=== PATIENT | male | born 1965 | race Two or more races ===

== ENCOUNTER 2018-12-05 15:17 | Inpatient (IN) | payer MEDICAID ==
[~2018-12-05] VITALS: Ht 175.3 cm; Wt 175.1 kg
[2018-12-05] MEDS ORDERED: NITROGLYCERIN OINT 1GM/INCH UDPKT TD ONE (16:15)
[2018-12-05] MEDS ORDERED: ASPIRIN 81MG TABLET PO ONE (16:15)
[2018-12-05] MEDS ORDERED: FUROSEMIDE 40MG/4ML VIAL IV ONE (16:15)
[2018-12-05 16:51] LABS: HEMATOCRIT. 40.8 % (42.0-52.0); HEMOGLOBIN. 13.1 g/dL (14.0-18.0); MEAN CORPUSCULAR HEMOGLOBIN 29.2 pg (28.0-32.0); MEAN CORPUSCULAR VOLUME 91.3 fL (80.0-94.0); MEAN PLATELET VOLUME 7.8 fl (7.4-10.4); PLATELET 328 x1000/uL (130-400); RED BLOOD CELL COUNT 4.47 mill/uL (4.7-6.1); RED CELL DISTRIBUTION WIDTH 16.8 % (11.6-14.6)
[2018-12-05 16:55] LABS: CHLORIDE 106 mEq/L (98-107)
[2018-12-05 17:10] LABS: PLATELET ESTIMATE NORMAL
[2018-12-05 17:12] LABS: INR 1.2; PARTIAL THROMBOPLASTIN TIME 29.9 sec (23.4-31.0); PROTHROMBIN TIME 11.6 sec (9.1-11.1)
[2018-12-05] MEDS ORDERED: ENOXAPARIN 40MG/0.4ML SYR SUBCUT SCH (20:45)
[2018-12-05] MEDS ORDERED: ACETAMINOPHEN 325MG TABLET PO PRN (20:45)
[2018-12-05] MEDS ORDERED: DOCUSATE SODIUM 100MG CAPSULE PO PRN (20:45)
[2018-12-05] MEDS ORDERED: HYDROCODONE/ACETAMINOPHEN 5/325MG TABLET PO PRN (20:45)
[2018-12-05] MEDS ORDERED: IPRATROPIUM/ALBUTEROL 0.5-3(2.5)MG/3ML NEB INH PRN (20:45)
[2018-12-05] MEDS ORDERED: CLONIDINE 0.1MG TABLET PO PRN (20:45)
[2018-12-05] MEDS ORDERED: ONDANSETRON HCL 4MG/2ML INJ IV PRN (20:45)
[2018-12-05] MEDS: ENOXAPARIN 40MG/0.4ML SYR SUBCUT SCH (22:48)
[2018-12-06] VITALS (7 sets, daily range): BP systolic 114–130; BP diastolic 55–79
[2018-12-06 07:54] LABS: BG CARBOXYHEMOGLOBIN 0.7 % (0.5-1.5); BG DEOXYHEMOGLOBIN 12.7 % (0.0-5.0); BG HCO3 ACT 35.2 mmol/L (22.0-26.0); BG METHEMOGLOBIN 0.1 % (0.0-1.5); BG OXYGEN SATURATION 87.2 % (92.0-98.5); BG OXYHEMOGLOBIN 86.5 % (94.0-97.0); BG PCO2 66.7 mmHg (35.0-45.0); BG PO2 55.4 mmHg (75.0-100.0); BG SAMPLE SITE RIGHT RADIAL; BG TOTAL HEMOGLOBIN 13.9 g/dL (12.0-18.0); BG VENT MODE MASK - TRACH
[2018-12-06] MEDS ORDERED: FUROSEMIDE 40MG/4ML VIAL IV SCH (09:00)
[2018-12-06] MEDS: AMLODIPINE 10MG TABLET PO SCH (10:35)
[2018-12-06] MEDS: FUROSEMIDE 40MG/4ML VIAL IV SCH ×2 (10:36→18:19)
[2018-12-06 10:37] LABS: HEMATOCRIT. 40.8 % (42.0-52.0); MEAN CORPUSCULAR HEMOGLOBIN 29.1 pg (28.0-32.0); MEAN CORPUSCULAR VOLUME 91.6 fL (80.0-94.0); PLATELET 310 x1000/uL (130-400); RED BLOOD CELL COUNT 4.45 mill/uL (4.7-6.1)
[2018-12-06 10:40] LABS: CHLORIDE 103 mEq/L (98-107)
[2018-12-06] MEDS: ENOXAPARIN 40MG/0.4ML SYR SUBCUT SCH ×2 (10:47→20:40)
[2018-12-06 10:50] LABS: LDL CHOLESTEROL 58 mg/dL (5-100)
[2018-12-06 10:51] LABS: HDL CHOLESTEROL 27 mg/dL (40-59)
[2018-12-06 11:24] LABS: NUCLEATED RED BLOOD CELLS 1 /100 WBC
[2018-12-06 11:25] LABS: PLATELET ESTIMATE NORMAL
[2018-12-06] MEDS: NAPHAZOLINE HCL/PHENIR MAL OPHTH SOLN 15ML BOTHEYE PRN ×2 (14:58→22:15)
[2018-12-06 16:00] LABS: T4 FREE 1.17 ng/dL (0.76-1.46)
[2018-12-06 16:02] LABS: CREATINE KINASE 46 IU/L (39-308)
[2018-12-06 16:03] LABS: CREATINE KINASE MB FRACTION < 1.0 ng/mL (0.5-3.6)
[2018-12-06] MEDS: SILVER SULFADIAZINE 1% CREAM 25GM TOP SCH (22:15)
[2018-12-06] MEDS: IPRATROPIUM/ALBUTEROL 0.5-3(2.5)MG/3ML NEB HHN SCH (22:46)
[2018-12-07] VITALS: BP 119/76
[2018-12-07 00:38] LABS: CREATINE KINASE 57 IU/L (39-308)
[2018-12-07 00:39] LABS: CREATINE KINASE MB FRACTION < 1.0 ng/mL (0.5-3.6)
[2018-12-07] MEDS: IPRATROPIUM/ALBUTEROL 0.5-3(2.5)MG/3ML NEB HHN SCH ×4 (02:53→20:45)
[2018-12-07 04:00] VITALS: BP 121/73
[2018-12-07 07:34] LABS: CREATINE KINASE 64 IU/L (39-308)
[2018-12-07 07:35] LABS: CREATINE KINASE MB FRACTION < 1.0 ng/mL (0.5-3.6)
[2018-12-07] MEDS: ENOXAPARIN 40MG/0.4ML SYR SUBCUT SCH ×2 (07:54→21:33)
[2018-12-07] MEDS: AMLODIPINE 10MG TABLET PO SCH (07:54)
[2018-12-07] MEDS: FUROSEMIDE 40MG/4ML VIAL IV SCH ×2 (07:54→17:24)
[2018-12-07 08:00] VITALS: BP 124/71
[2018-12-07] MEDS: SILVER SULFADIAZINE 1% CREAM 25GM TOP SCH (08:01)
[2018-12-07] MEDS: NAPHAZOLINE HCL/PHENIR MAL OPHTH SOLN 15ML BOTHEYE PRN (08:02)
[2018-12-07 12:00] VITALS: BP 104/69
[2018-12-07] MEDS: GENTAMICIN 0.3% OPHTH DROPS 5ML LEFTEYE SCH ×3 (12:00→21:32)
[2018-12-07 16:00] VITALS: BP 123/77
[2018-12-07 20:00] VITALS: BP 102/65
[2018-12-08] VITALS: BP 106/58
[2018-12-08] MEDS: IPRATROPIUM/ALBUTEROL 0.5-3(2.5)MG/3ML NEB HHN SCH ×2 (01:38→08:20)
[2018-12-08 04:00] VITALS: BP 115/71
[2018-12-08] MEDS: GENTAMICIN 0.3% OPHTH DROPS 5ML LEFTEYE SCH ×3 (05:42→08:03)
[2018-12-08 08:00] VITALS: BP 107/65
[2018-12-08] MEDS: FUROSEMIDE 40MG/4ML VIAL IV SCH (08:03)
[2018-12-08] MEDS: AMLODIPINE 10MG TABLET PO SCH (08:03)
[2018-12-08] MEDS: SILVER SULFADIAZINE 1% CREAM 25GM TOP SCH (08:04)
[2018-12-08] MEDS: ENOXAPARIN 40MG/0.4ML SYR SUBCUT SCH (08:04)
[2018-12-08 10:16] VITALS: BP 107/65
[2018-12-08] MEDS ORDERED: POTA20TA82 MT (11:43)
[2018-12-08] MEDS ORDERED: FURO40TA5 MT (11:43)
[2018-12-08 12:00] VITALS: BP 124/61
== END 2018-12-08 13:48 | disposition home or self-care (01) | DRG 194 ==
LOC: ER 15:17 → EDBEDREQ 16:18 → 7WST 17:38 → EDBEDREQ 17:40 → ENRESERV 23:50 → CANRESERV 23:50 → 7WST 12-07 01:48
PROVIDERS: ADMIT Hospitalist; ATTEND Hospitalist
DX: I11.0 Hypertensive heart disease with heart failure (principal); J96.20 Acute and chronic respiratory failure, unspecified whether with hypoxia or hypercapnia; E44.0 Moderate protein-calorie malnutrition; E87.2 Acidosis; Z93.0 Tracheostomy status; Z99.81 Dependence on supplemental oxygen; E66.2 Morbid (severe) obesity with alveolar hypoventilation; I50.33 Acute on chronic diastolic (congestive) heart failure; H10.9 Unspecified conjunctivitis; I83.029 Varicose veins of left lower extremity with ulcer of unspecified site; L85.3 Xerosis cutis; L97.929 Non-pressure chronic ulcer of unspecified part of left lower leg with unspecified severity; D72.829 Elevated white blood cell count, unspecified; T36.95XA Adverse effect of unspecified systemic antibiotic, initial encounter; Y92.89 Other specified places as the place of occurrence of the external cause; Z86.73 Personal history of transient ischemic attack (TIA), and cerebral infarction without residual deficits; Z87.01 Personal history of pneumonia (recurrent); Z68.43 Body mass index [BMI] 50.0-59.9, adult; Z71.3 Dietary counseling and surveillance
CPT/HCPCS: 36415; 36600; 71045; 78580; 80061; 82375; 82550; 82553; 82805; 83036; 83880; 84134; 84439; 84443; 84484; 85379; 87070; 93005; 93308; 93970; 94640; 96372; 96374; 99285; J1650; J1940; J7620

== ENCOUNTER 2021-02-16 00:11 | Inpatient (IN) | payer MEDICAID ==
[~2021-02-16] VITALS: Ht 175.3 cm; Wt 298.1 kg
[2021-02-16] VITALS (38 sets, daily range): BP systolic 66–176; BP diastolic 33–133
[~2021-02-16 00:11] MED LIST: FURO40TA5 MT; POTA20TA82 MT
[2021-02-16] MEDS ORDERED: VANCOMYCIN 1 G PREMIX 200 ML IV ONE ×2 (01:00→06:45)
[2021-02-16] MEDS ORDERED: PIPERACILLIN/TAZ 3.375G PREMIX 50 ML IV ONE ×2 (01:00→06:45)
[2021-02-16] MEDS ORDERED: ACETAMINOPHEN 325MG TABLET PO ONE (01:00)
[2021-02-16 01:20] LABS: BG BASE EXCESS 0.3 mmol/L (-2.0-2.0); BG CARBOXYHEMOGLOBIN 0.9 % (0.5-1.5); BG DEOXYHEMOGLOBIN 5.2 % (0.0-5.0); BG FRACTION INSPIRED OXYGEN 60; BG HCO3 ACT 30.2 mmol/L (22.0-26.0); BG METHEMOGLOBIN 0.1 % (0.0-1.5); BG OXYGEN SATURATION 94.7 % (92.0-98.5); BG OXYHEMOGLOBIN 93.8 % (94.0-97.0); BG PCO2 78.5 mmHg (35.0-45.0); BG PH 7.203 (7.350-7.450); BG PO2 74.7 mmHg (75.0-100.0); BG TOTAL HEMOGLOBIN 12.5 g/dL (12.0-18.0); BG VENT MODE NASAL CANNULA
[2021-02-16 01:31] LABS: CLARITY URINE CLEAR (CLEAR); COLOR URINE YELLOW (YELLOW); KETONES URINE NEGATIVE (NEGATIVE); LEUKOCYTE ESTERASE URINE NEGATIVE (NEGATIVE); NITRITE URINE NEGATIVE (NEGATIVE); OCCULT BLOOD URINE NEGATIVE (NEGATIVE); PH URINE 5.5 (4.5-8.0); PROTEIN URINE 2+ (NEGATIVE); SPECIFIC GRAVITY URINE 1.016 (1.005-1.030)
[2021-02-16 01:33] LABS: HEMATOCRIT. 38.3 % (42.0-52.0); MEAN CORPUSCULAR HEMOGLOBIN 31.1 pg (28.0-32.0); MEAN CORPUSCULAR VOLUME 99.2 fL (80.0-94.0); MEAN PLATELET VOLUME 7.8 fl (7.4-10.4); PLATELET 224 x1000/uL (130-400); RED BLOOD CELL COUNT 3.86 mill/uL (4.7-6.1); RED CELL DISTRIBUTION WIDTH 16.8 % (11.6-14.6)
[2021-02-16 01:53] LABS: CHLORIDE 103 mEq/L (98-107)
[2021-02-16] MEDS ORDERED: DEXTROSE 50% WATER 50ML SYRINGE IV ONE (02:15)
[2021-02-16] MEDS ORDERED: INSULIN REGULAR (HUMULIN R) 300UNITS/3ML VIAL IV ONE (02:15)
[2021-02-16] MEDS ORDERED: SODIUM BICARBONATE 8.4% 1 MEQ/ML 50ML SYR IV ONE (02:15)
[2021-02-16] MEDS ORDERED: ALBUTEROL (0.083%) 2.5MG/3ML NEB HHN ONE (02:15)
[2021-02-16] MEDS ORDERED: SODIUM POLYSTYRENE SULFONATE 15 G/60 ML BOT PO ONE (02:15)
[2021-02-16 02:16] LABS: PARTIAL THROMBOPLASTIN TIME 30.8 sec (23.4-31.0); PROTHROMBIN TIME 10.8 sec (9.6-11.0)
[2021-02-16] MEDS ORDERED: DEXAMETHASONE 10 MG/ML VIAL IV ONE (02:30)
[2021-02-16] MEDS ORDERED: FUROSEMIDE 40MG/4ML VIAL IVP ONE (02:30)
[2021-02-16 05:19] LABS: PLATELET ESTIMATE NORMAL
[2021-02-16] MEDS ORDERED: SODIUM POLYSTYRENE SULFONATE 15 G/60 ML BOT PO SCH (06:45)
[2021-02-16] MEDS ORDERED: ACETAMINOPHEN 325MG TABLET PO SCH (06:45)
[2021-02-16 07:17] LABS: BG SAMPLE SITE LEFT RADIAL; BG VENT MODE VENT - AC
[2021-02-16 07:24] LABS: BG PCO2 52.8 mmHg (35.0-45.0); BG PH 7.358 (7.350-7.450)
[2021-02-16 07:25] LABS: BG BASE EXCESS 2.7 mmol/L (-2.0-2.0); BG PO2 93.5 mmHg (75.0-100.0)
[2021-02-16 07:26] LABS: BG CARBOXYHEMOGLOBIN 0.3 % (0.5-1.5); BG OXYGEN SATURATION 97.6 % (92.0-98.5); BG OXYHEMOGLOBIN 97.2 % (94.0-97.0); BG TOTAL HEMOGLOBIN 11.5 g/dL (12.0-18.0)
[2021-02-16 07:27] LABS: BG DEOXYHEMOGLOBIN 2.4 % (0.0-5.0); BG METHEMOGLOBIN 0.1 % (0.0-1.5)
[2021-02-16] MEDS ORDERED: ONDANSETRON HCL 4MG/2ML INJ IV PRN (10:30)
[2021-02-16] MEDS ORDERED: DEXTROSE 50% WATER 50ML SYRINGE IV PRN (10:30)
[2021-02-16] MEDS ORDERED: LIDOCAINE HCL 1% 20ML VIAL (Pyxis) INJ ONE (11:19)
[2021-02-16] MEDS: SODIUM CHLORIDE 0.9% 1,000 ML IV SCH (11:20)
[2021-02-16] MEDS: BLOOD SUGAR DIAGNOSTIC STRIP TEST SCH ×2 (11:23→16:39)
[2021-02-16] MEDS: INSULIN LISPRO 100 UNITS/ML SUBCUT SCH ×2 (11:25→17:42)
[2021-02-16] MEDS: PIPERACILLIN/TAZOBACTAM 3.375 G in DEXT 5% WATER 100 ML IV SCH ×2 (11:26→17:20)
[2021-02-16] MEDS: ENOXAPARIN 40MG/0.4ML SYR SUBCUT SCH ×2 (11:30→21:00)
[2021-02-16] MEDS: IPRATROPIUM/ALBUTEROL 0.5-3(2.5)MG/3ML NEB HHN SCH ×2 (14:13→20:26)
[2021-02-16 18:03] LABS: BG CARBOXYHEMOGLOBIN 0.3 % (0.5-1.5); BG DEOXYHEMOGLOBIN 5.9 % (0.0-5.0); BG FRACTION INSPIRED OXYGEN 50; BG HCO3 ACT 23.8 mmol/L (22.0-26.0); BG METHEMOGLOBIN 0.9 % (0.0-1.5); BG OXYHEMOGLOBIN 92.9 % (94.0-97.0); BG PCO2 40.1 mmHg (35.0-45.0); BG PH 7.391 (7.350-7.450); BG PO2 67.5 mmHg (75.0-100.0); BG SAMPLE SITE RIGHT RADIAL; BG TOTAL HEMOGLOBIN 6.5 g/dL (12.0-18.0); BG VENT MODE VENT - CPAP
[2021-02-16 20:44] LABS: HEMATOCRIT. 37.8 % (42.0-52.0); HEMOGLOBIN. 12.2 g/dL (14.0-18.0); MEAN CORPUSCULAR VOLUME 95.7 fL (80.0-94.0); MEAN PLATELET VOLUME 8.2 fl (7.4-10.4); PLATELET 234 x1000/uL (130-400); RED BLOOD CELL COUNT 3.95 mill/uL (4.7-6.1); RED CELL DISTRIBUTION WIDTH 15.9 % (11.6-14.6)
[2021-02-16 21:26] LABS: PLATELET ESTIMATE NORMAL
[2021-02-16] MEDS: NOREPINEPHRINE 32 MG in DEXT 5% WATER 218 ML IV PRN (21:30)
[2021-02-17] VITALS (97 sets, daily range): BP systolic 49–205; BP diastolic 24–167
[2021-02-17] MEDS: PIPERACILLIN/TAZOBACTAM 3.375 G in DEXT 5% WATER 100 ML IV SCH ×2 (00:17→05:22)
[2021-02-17] MEDS: INSULIN LISPRO 100 UNITS/ML SUBCUT SCH ×5 (00:18→23:44)
[2021-02-17] MEDS: BLOOD SUGAR DIAGNOSTIC STRIP TEST SCH ×5 (00:20→23:43)
[2021-02-17] MEDS: PHENYLEPHRINE 100 MG in DEXT 5% WATER 240 ML IV PRN ×5 (01:12→22:05)
[2021-02-17] MEDS ORDERED: LORAZEPAM 2MG/ML CPJ IV NR (01:30)
[2021-02-17] MEDS ORDERED: DIPHENHYDRAMINE 50MG CAPSULE PO SCH (02:30)
[2021-02-17] MEDS ORDERED: DIPHENHYDRAMINE 50MG/ML VIAL IV PRN (02:30)
[2021-02-17] MEDS: ACETAMINOPHEN 325MG TABLET PO PRN (02:51)
[2021-02-17] MEDS ORDERED: DIPHENHYDRAMINE 50MG/ML VIAL IV SCH (03:00)
[2021-02-17] MEDS: PROPOFOL 10MG/ML 100ML 100 ML IV PRN ×3 (03:11→20:05)
[2021-02-17 03:36] LABS: CLARITY URINE TURBID (CLEAR); COLOR URINE DARK YELLOW (YELLOW); KETONES URINE TRACE (NEGATIVE); LEUKOCYTE ESTERASE URINE TRACE (NEGATIVE); NITRITE URINE NEGATIVE (NEGATIVE); OCCULT BLOOD URINE NEGATIVE (NEGATIVE); PROTEIN URINE 2+ (NEGATIVE); SPECIFIC GRAVITY URINE 1.026 (1.005-1.030)
[2021-02-17 04:37] LABS: BG BASE EXCESS 2.7 mmol/L (-2.0-2.0); BG CARBOXYHEMOGLOBIN 0.7 % (0.5-1.5); BG DEOXYHEMOGLOBIN 5.4 % (0.0-5.0); BG FRACTION INSPIRED OXYGEN 60; BG HCO3 ACT 26.8 mmol/L (22.0-26.0); BG METHEMOGLOBIN 0.2 % (0.0-1.5); BG OXYGEN SATURATION 94.6 % (92.0-98.5); BG OXYHEMOGLOBIN 93.7 % (94.0-97.0); BG PCO2 39.5 mmHg (35.0-45.0); BG PO2 65.6 mmHg (75.0-100.0); BG SAMPLE SITE RIGHT RADIAL; BG TOTAL HEMOGLOBIN 12.4 g/dL (12.0-18.0); BG VENT MODE VENT - AC
[2021-02-17 04:58] LABS: BASOPHILS % 0.1 % (0.0-2.0); EOSINOPHILS % 0.3 % (0.0-5.0); HEMATOCRIT. 38.4 % (42.0-52.0); LYMPHOCYTES % 1.6 % (20.0-50.0); MEAN CORPUSCULAR VOLUME 95.7 fL (80.0-94.0); MEAN PLATELET VOLUME 8.5 fl (7.4-10.4); MONOCYTES % 2.3 % (2.0-8.0); NEUTROPHILS % 95.7 % (40.0-76.0); PLATELET 245 x1000/uL (130-400); RED BLOOD CELL COUNT 4.01 mill/uL (4.7-6.1); RED CELL DISTRIBUTION WIDTH 15.9 % (11.6-14.6)
[2021-02-17] MEDS: IPRATROPIUM/ALBUTEROL 0.5-3(2.5)MG/3ML NEB HHN SCH ×4 (08:07→20:39)
[2021-02-17] MEDS ORDERED: INFLUENZA VACCINE 05/PF 0.5 ML VIAL IM ONE (09:00)
[2021-02-17] MEDS: SODIUM CHLORIDE 0.9% 1,000 ML IV SCH (09:17)
[2021-02-17] MEDS: ENOXAPARIN 40MG/0.4ML SYR SUBCUT SCH ×2 (09:18→20:56)
[2021-02-17] MEDS: LEVOFLOXACIN 500MG PREMIX 100 ML IV SCH (11:33)
[2021-02-17] MEDS: MIDODRINE HCL 5MG TABLET PO SCH ×2 (11:34→17:32)
[2021-02-17] MEDS: SODIUM CHLORIDE 0.45% 1,000 ML IV SCH ×2 (11:35→22:08)
[2021-02-17] MEDS ORDERED: SODIUM CHLORIDE 10% FOR INH 15ML VIAL NEB INH NR (12:00)
[2021-02-17 12:39] LABS: BG BASE EXCESS 2.2 mmol/L (-2.0-2.0); BG DEOXYHEMOGLOBIN 5.6 % (0.0-5.0); BG FRACTION INSPIRED OXYGEN 50; BG HCO3 ACT 27.4 mmol/L (22.0-26.0); BG METHEMOGLOBIN 0.1 % (0.0-1.5); BG OXYGEN SATURATION 94.3 % (92.0-98.5); BG OXYHEMOGLOBIN 93.3 % (94.0-97.0); BG PCO2 44.5 mmHg (35.0-45.0); BG PH 7.407 (7.350-7.450); BG PO2 65.7 mmHg (75.0-100.0); BG SAMPLE SITE RIGHT RADIAL; BG TOTAL HEMOGLOBIN 14.1 g/dL (12.0-18.0); BG VENT MODE VENT - AC
[2021-02-17] MEDS ORDERED: VANCOMYCIN 1 G PREMIX 200 ML IV SCH (13:00)
[2021-02-17] MEDS: NOREPINEPHRINE 32 MG in DEXT 5% WATER 218 ML IV PRN (22:07)
[2021-02-18] VITALS (94 sets, daily range): BP systolic 64–165; BP diastolic 39–100
[2021-02-18] MEDS: PHENYLEPHRINE 100 MG in DEXT 5% WATER 240 ML IV PRN ×7 (00:42→23:09)
[2021-02-18] MEDS: IPRATROPIUM/ALBUTEROL 0.5-3(2.5)MG/3ML NEB HHN SCH ×4 (02:26→19:55)
[2021-02-18] MEDS: ACETAMINOPHEN 325MG TABLET PO PRN (02:31)
[2021-02-18] MEDS: PROPOFOL 10MG/ML 100ML 100 ML IV PRN (03:49)
[2021-02-18] MEDS ORDERED: PROPOFOL 10MG/ML 100ML 100 ML IV PRN (04:45)
[2021-02-18] MEDS: NOREPINEPHRINE 32 MG in DEXT 5% WATER 218 ML IV PRN ×2 (05:41→19:44)
[2021-02-18 05:52] LABS: HEMATOCRIT. 38.4 % (42.0-52.0); HEMOGLOBIN. 11.5 g/dL (14.0-18.0); MEAN CORPUSCULAR VOLUME 100.7 fL (80.0-94.0); MEAN PLATELET VOLUME 9.1 fl (7.4-10.4); PLATELET 189 x1000/uL (130-400); RED BLOOD CELL COUNT 3.81 mill/uL (4.7-6.1)
[2021-02-18] MEDS: BLOOD SUGAR DIAGNOSTIC STRIP TEST SCH ×3 (06:42→17:13)
[2021-02-18] MEDS: INSULIN LISPRO 100 UNITS/ML SUBCUT SCH ×3 (06:45→17:17)
[2021-02-18] MEDS: MIDODRINE HCL 5MG TABLET PO SCH ×3 (08:07→17:15)
[2021-02-18 08:08] LABS: BG BASE EXCESS 0.2 mmol/L (-2.0-2.0); BG FRACTION INSPIRED OXYGEN 50; BG HCO3 ACT 25.7 mmol/L (22.0-26.0); BG METHEMOGLOBIN 0.3 % (0.0-1.5); BG OXYHEMOGLOBIN 95.7 % (94.0-97.0); BG PCO2 44.9 mmHg (35.0-45.0); BG PH 7.376 (7.350-7.450); BG SAMPLE SITE RIGHT RADIAL; BG VENT MODE VENT - AC
[2021-02-18] MEDS: SODIUM CHLORIDE 0.45% 1,000 ML IV SCH ×2 (08:08→17:15)
[2021-02-18] MEDS: ENOXAPARIN 40MG/0.4ML SYR SUBCUT SCH ×2 (08:08→20:55)
[2021-02-18 10:37] LABS: PLATELET ESTIMATE NORMAL
[2021-02-18] MEDS: LEVOFLOXACIN 500MG PREMIX 100 ML IV SCH (10:45)
[2021-02-18] MEDS ORDERED: SODIUM CHLORIDE 10% FOR INH 15ML VIAL NEB INH NR (12:00)
[2021-02-18] MEDS: MEROPENEM 1,000 MG in SODIUM CHLORIDE 0.9% 100 ML IV SCH ×2 (13:25→19:51)
[2021-02-18] MEDS: DIPHENHYDRAMINE 50MG/ML VIAL IV PRN ×2 (15:00→20:55)
[2021-02-18] MEDS: MORPHINE SULFATE 2 MG/ML CPJ (NOT FOR IM USE) IV PRN (20:56)
[2021-02-19] VITALS (98 sets, daily range): BP systolic 65–172; BP diastolic 34–101
[2021-02-19] MEDS: ACETAMINOPHEN 325MG TABLET PO PRN ×4 (00:07→23:11)
[2021-02-19] MEDS: BLOOD SUGAR DIAGNOSTIC STRIP TEST SCH ×4 (00:41→17:10)
[2021-02-19] MEDS: INSULIN LISPRO 100 UNITS/ML SUBCUT SCH ×4 (01:03→17:24)
[2021-02-19] MEDS: PHENYLEPHRINE 100 MG in DEXT 5% WATER 240 ML IV PRN ×8 (01:42→23:09)
[2021-02-19] MEDS: IPRATROPIUM/ALBUTEROL 0.5-3(2.5)MG/3ML NEB HHN SCH ×4 (01:48→20:34)
[2021-02-19] MEDS: SODIUM CHLORIDE 0.45% 1,000 ML IV SCH ×3 (02:55→23:11)
[2021-02-19] MEDS: NOREPINEPHRINE 32 MG in DEXT 5% WATER 218 ML IV PRN ×3 (03:28→22:17)
[2021-02-19] MEDS: MEROPENEM 1,000 MG in SODIUM CHLORIDE 0.9% 100 ML IV SCH ×3 (04:09→22:35)
[2021-02-19] MEDS: MORPHINE SULFATE 2 MG/ML CPJ (NOT FOR IM USE) IV PRN ×2 (04:09→11:02)
[2021-02-19 05:47] LABS: HEMATOCRIT. 38.4 % (42.0-52.0); HEMOGLOBIN. 11.8 g/dL (14.0-18.0); MEAN CORPUSCULAR HEMOGLOBIN 29.7 pg (28.0-32.0); MEAN CORPUSCULAR VOLUME 96.8 fL (80.0-94.0); MEAN PLATELET VOLUME 8.9 fl (7.4-10.4); PLATELET 188 x1000/uL (130-400); RED BLOOD CELL COUNT 3.96 mill/uL (4.7-6.1); RED CELL DISTRIBUTION WIDTH 16.6 % (11.6-14.6)
[2021-02-19] MEDS ORDERED: SODIUM BICARBONATE 8.4% 1 MEQ/ML 50ML SYR IV ONE (08:21)
[2021-02-19] MEDS ORDERED: CALCIUM CHLORIDE 1GM/10ML SYR IV ONE (08:21)
[2021-02-19] MEDS ORDERED: EPINEPHRINE 0.1MG/ML (1:10,000) 10ML SYR ONE (08:21)
[2021-02-19] MEDS: ACETYLCYSTEINE 100MG/ML 10% VIAL 4ML INH SCH ×2 (08:43→13:06)
[2021-02-19] MEDS: MIDODRINE HCL 5MG TABLET PO SCH ×3 (08:53→17:23)
[2021-02-19] MEDS: ENOXAPARIN 40MG/0.4ML SYR SUBCUT SCH ×2 (08:53→22:35)
[2021-02-19 09:07] LABS: BG BASE EXCESS 1.3 mmol/L (-2.0-2.0); BG CARBOXYHEMOGLOBIN 0.2 % (0.5-1.5); BG DEOXYHEMOGLOBIN 2.2 % (0.0-5.0); BG FRACTION INSPIRED OXYGEN 50; BG HCO3 ACT 28.9 mmol/L (22.0-26.0); BG METHEMOGLOBIN 0.3 % (0.0-1.5); BG OXYGEN SATURATION 97.8 % (92.0-98.5); BG OXYHEMOGLOBIN 97.3 % (94.0-97.0); BG PCO2 60.6 mmHg (35.0-45.0); BG PH 7.297 (7.350-7.450); BG PO2 99.6 mmHg (75.0-100.0); BG SAMPLE SITE RIGHT RADIAL; BG VENT MODE VENT - AC
[2021-02-19] MEDS ORDERED: INSULIN GLARGINE UD 100 UNITS/ML SYR SUBCUT NR (12:00)
[2021-02-19 12:04] LABS: PLATELET ESTIMATE NORMAL
[2021-02-19] MEDS: LINEZOLID 600 MG PREMIX 300 ML IV SCH (14:06)
[2021-02-19] MEDS ORDERED: NOREPINEPHRINE 32 MG in DEXT 5% WATER 218 ML IV PRN (21:15)
[2021-02-19] MEDS ORDERED: INSULIN GLARGINE UD 100 UNITS/ML SYR SUBCUT SCH (22:00)
[2021-02-20] VITALS (105 sets, daily range): BP systolic 40–195; BP diastolic 25–119
[2021-02-20] MEDS: LINEZOLID 600 MG PREMIX 300 ML IV SCH ×2 (01:14→13:51)
[2021-02-20] MEDS: INSULIN LISPRO 100 UNITS/ML SUBCUT SCH ×4 (01:18→17:59)
[2021-02-20] MEDS: PHENYLEPHRINE 100 MG in DEXT 5% WATER 240 ML IV PRN ×7 (02:20→23:12)
[2021-02-20] MEDS: NOREPINEPHRINE 32 MG in DEXT 5% WATER 218 ML IV PRN (03:23)
[2021-02-20] MEDS: MEROPENEM 1,000 MG in SODIUM CHLORIDE 0.9% 100 ML IV SCH ×3 (03:59→20:52)
[2021-02-20 05:43] LABS: HEMATOCRIT. 40.4 % (42.0-52.0); HEMOGLOBIN. 12.7 g/dL (14.0-18.0); MEAN CORPUSCULAR HEMOGLOBIN 30.5 pg (28.0-32.0); MEAN CORPUSCULAR VOLUME 97.2 fL (80.0-94.0); MEAN PLATELET VOLUME 9.5 fl (7.4-10.4); PLATELET 219 x1000/uL (130-400); RED BLOOD CELL COUNT 4.15 mill/uL (4.7-6.1); RED CELL DISTRIBUTION WIDTH 16.7 % (11.6-14.6)
[2021-02-20] MEDS: IPRATROPIUM/ALBUTEROL 0.5-3(2.5)MG/3ML NEB HHN SCH ×5 (06:00→20:33)
[2021-02-20] MEDS: BLOOD SUGAR DIAGNOSTIC STRIP TEST SCH ×4 (06:04→18:00)
[2021-02-20 08:51] LABS: BG BASE EXCESS 1.2 mmol/L (-2.0-2.0); BG CARBOXYHEMOGLOBIN 0.6 % (0.5-1.5); BG DEOXYHEMOGLOBIN 0.4 % (0.0-5.0); BG FRACTION INSPIRED OXYGEN 100; BG HCO3 ACT 26.2 mmol/L (22.0-26.0); BG METHEMOGLOBIN 0.3 % (0.0-1.5); BG OXYGEN SATURATION 99.6 % (92.0-98.5); BG OXYHEMOGLOBIN 98.7 % (94.0-97.0); BG PH 7.403 (7.350-7.450); BG PO2 228.1 mmHg (75.0-100.0); BG SAMPLE SITE RIGHT RADIAL; BG TOTAL HEMOGLOBIN 13.2 g/dL (12.0-18.0); BG VENT MODE VENT - AC
[2021-02-20] MEDS: ACETYLCYSTEINE 100MG/ML 10% VIAL 4ML INH SCH ×2 (08:58→14:05)
[2021-02-20] MEDS ORDERED: VASOPRESSIN 20 UNIT in SODIUM CHLORIDE 0.9% 99 ML IV PRN (09:00)
[2021-02-20] MEDS: SODIUM CHLORIDE 0.9% 1,000 ML IV SCH ×2 (09:11→20:57)
[2021-02-20] MEDS: MIDODRINE HCL 5MG TABLET PO SCH ×3 (09:11→17:32)
[2021-02-20] MEDS: ENOXAPARIN 40MG/0.4ML SYR SUBCUT SCH ×2 (09:12→20:52)
[2021-02-20] MEDS: ACETAMINOPHEN 325MG TABLET PO PRN ×2 (09:12→22:34)
[2021-02-20] MEDS ORDERED: LIDOCAINE HCL 1% 20ML VIAL (Pyxis) INJ ONE (12:27)
[2021-02-20] MEDS: INSULIN GLARGINE UD 100 UNITS/ML SYR SUBCUT SCH ×2 (12:38→22:07)
[2021-02-20 13:19] LABS: PLATELET ESTIMATE NORMAL
[2021-02-20] MEDS: METHYLPREDNISOLONE SOD SUCC 125 MG/2 ML VIAL IV SCH ×2 (13:51→22:05)
[2021-02-21] VITALS (94 sets, daily range): BP systolic 70–174; BP diastolic 29–99
[2021-02-21] MEDS: BLOOD SUGAR DIAGNOSTIC STRIP TEST SCH ×5 (00:51→23:44)
[2021-02-21] MEDS: INSULIN LISPRO 100 UNITS/ML SUBCUT SCH ×5 (00:58→23:38)
[2021-02-21] MEDS: IPRATROPIUM/ALBUTEROL 0.5-3(2.5)MG/3ML NEB HHN SCH ×2 (02:03→08:01)
[2021-02-21] MEDS: LINEZOLID 600 MG PREMIX 300 ML IV SCH ×2 (02:44→13:26)
[2021-02-21] MEDS: MEROPENEM 1,000 MG in SODIUM CHLORIDE 0.9% 100 ML IV SCH ×3 (04:01→22:01)
[2021-02-21] MEDS: SODIUM CHLORIDE 0.9% 1,000 ML IV SCH ×2 (05:09→13:26)
[2021-02-21] MEDS: METHYLPREDNISOLONE SOD SUCC 125 MG/2 ML VIAL IV SCH (05:50)
[2021-02-21] MEDS: ACETYLCYSTEINE 100MG/ML 10% VIAL 4ML INH SCH ×3 (08:00→17:00)
[2021-02-21] MEDS ORDERED: METOPROLOL TARTRATE 25MG TABLET PO ONE (08:45)
[2021-02-21] MEDS ORDERED: METOPROLOL TARTRATE 25MG TABLET PO SCH (09:00)
[2021-02-21 09:07] LABS: BG BASE EXCESS 2.3 mmol/L (-2.0-2.0); BG CARBOXYHEMOGLOBIN 0.2 % (0.5-1.5); BG DEOXYHEMOGLOBIN 1.6 % (0.0-5.0); BG FRACTION INSPIRED OXYGEN 80; BG HCO3 ACT 25.9 mmol/L (22.0-26.0); BG METHEMOGLOBIN 0.3 % (0.0-1.5); BG OXYGEN SATURATION 98.4 % (92.0-98.5); BG OXYHEMOGLOBIN 97.9 % (94.0-97.0); BG PCO2 36.7 mmHg (35.0-45.0); BG PH 7.467 (7.350-7.450); BG PO2 111.7 mmHg (75.0-100.0); BG SAMPLE SITE LEFT RADIAL; BG TOTAL HEMOGLOBIN 12.4 g/dL (12.0-18.0); BG VENT MODE VENT - AC
[2021-02-21 09:11] LABS: BASOPHILS % 0.3 % (0.0-2.0); HEMATOCRIT. 34.9 % (42.0-52.0); HEMOGLOBIN. 11.7 g/dL (14.0-18.0); LYMPHOCYTES % 11.8 % (20.0-50.0); MEAN CORPUSCULAR HEMOGLOBIN 31.7 pg (28.0-32.0); MEAN CORPUSCULAR VOLUME 94.7 fL (80.0-94.0); MEAN PLATELET VOLUME 9.4 fl (7.4-10.4); MONOCYTES % 3.1 % (2.0-8.0); NEUTROPHILS % 84.8 % (40.0-76.0); PLATELET 157 x1000/uL (130-400); RED BLOOD CELL COUNT 3.69 mill/uL (4.7-6.1); RED CELL DISTRIBUTION WIDTH 16.1 % (11.6-14.6)
[2021-02-21] MEDS: ENOXAPARIN 40MG/0.4ML SYR SUBCUT SCH ×2 (09:25→22:04)
[2021-02-21] MEDS: FENTANYL CITRATE/PF 2,500 MCG in SODIUM CHLORIDE 0.9% 200 ML IV PRN (09:31)
[2021-02-21] MEDS ORDERED: METHYLPREDNISOLONE SOD SUCC 125 MG/2 ML VIAL IV SCH (10:00)
[2021-02-21] MEDS ORDERED: CLONIDINE 0.1MG TABLET PO PRN (10:15)
[2021-02-21] MEDS: AMLODIPINE 10MG TABLET PO SCH (10:39)
[2021-02-21] MEDS: INSULIN GLARGINE UD 100 UNITS/ML SYR SUBCUT SCH ×2 (10:59→23:35)
[2021-02-21] MEDS ORDERED: DEXTROSE 50% WATER 50ML SYRINGE IV PRN (13:45)
[2021-02-21] MEDS: IPRATROPIUM BROMIDE (0.02%) 0.5MG/2.5ML NEB HHN SCH ×3 (14:43→20:13)
[2021-02-21] MEDS: METHYLPREDNISOLONE SOD SUCC 40 MG/ML VIAL IV SCH (17:25)
[2021-02-21] MEDS: METOPROLOL TARTRATE 25MG TABLET PO SCH (21:00)
[2021-02-21] MEDS: ACETAMINOPHEN 325MG TABLET PO PRN (22:20)
[2021-02-22] VITALS (97 sets, daily range): BP systolic 79–154; BP diastolic 45–102
[2021-02-22] MEDS: SODIUM CHLORIDE 0.9% 1,000 ML IV SCH ×3 (01:00→15:47)
[2021-02-22] MEDS: LINEZOLID 600 MG PREMIX 300 ML IV SCH ×2 (02:00→14:07)
[2021-02-22] MEDS: ACETYLCYSTEINE 100MG/ML 10% VIAL 4ML INH SCH ×3 (02:16→14:13)
[2021-02-22] MEDS: IPRATROPIUM BROMIDE (0.02%) 0.5MG/2.5ML NEB HHN SCH ×4 (02:20→20:45)
[2021-02-22] MEDS: METHYLPREDNISOLONE SOD SUCC 40 MG/ML VIAL IV SCH ×3 (03:45→17:50)
[2021-02-22] MEDS: MEROPENEM 1,000 MG in SODIUM CHLORIDE 0.9% 100 ML IV SCH ×2 (05:08→16:57)
[2021-02-22 05:51] LABS: HEMATOCRIT. 34.7 % (42.0-52.0); HEMOGLOBIN. 11.1 g/dL (14.0-18.0); MEAN CORPUSCULAR HEMOGLOBIN 30.2 pg (28.0-32.0); MEAN CORPUSCULAR VOLUME 94.3 fL (80.0-94.0); MEAN PLATELET VOLUME 10.5 fl (7.4-10.4); PLATELET 216 x1000/uL (130-400); RED BLOOD CELL COUNT 3.68 mill/uL (4.7-6.1); RED CELL DISTRIBUTION WIDTH 16.1 % (11.6-14.6)
[2021-02-22] MEDS: BLOOD SUGAR DIAGNOSTIC STRIP TEST SCH ×3 (06:00→17:47)
[2021-02-22] MEDS: INSULIN LISPRO 100 UNITS/ML SUBCUT SCH ×5 (08:18→17:51)
[2021-02-22] MEDS: METOPROLOL TARTRATE 25MG TABLET PO SCH ×2 (08:34→21:00)
[2021-02-22] MEDS: AMLODIPINE 10MG TABLET PO SCH (08:34)
[2021-02-22 09:22] LABS: BG BASE EXCESS 0.3 mmol/L (-2.0-2.0); BG CARBOXYHEMOGLOBIN 0.5 % (0.5-1.5); BG DEOXYHEMOGLOBIN 3.9 % (0.0-5.0); BG FRACTION INSPIRED OXYGEN 80; BG HCO3 ACT 25.9 mmol/L (22.0-26.0); BG METHEMOGLOBIN 0.2 % (0.0-1.5); BG OXYGEN SATURATION 96.1 % (92.0-98.5); BG OXYHEMOGLOBIN 95.4 % (94.0-97.0); BG PCO2 46.1 mmHg (35.0-45.0); BG PH 7.368 (7.350-7.450); BG PO2 84.1 mmHg (75.0-100.0); BG SAMPLE SITE LEFT RADIAL; BG TOTAL HEMOGLOBIN 12.2 g/dL (12.0-18.0); BG VENT MODE VENT - AC
[2021-02-22] MEDS: PHENYLEPHRINE 100 MG in DEXT 5% WATER 240 ML IV PRN ×2 (09:33→20:34)
[2021-02-22] MEDS: ENOXAPARIN 40MG/0.4ML SYR SUBCUT SCH ×2 (09:40→21:35)
[2021-02-22] MEDS: INSULIN GLARGINE UD 100 UNITS/ML SYR SUBCUT SCH (09:41)
[2021-02-22 11:55] LABS: PLATELET ESTIMATE NORMAL
[2021-02-22] MEDS: POLYVINYL ALCOHOL OPHTH DROPS 15ML BOTHEYE SCH (17:50)
[2021-02-23] VITALS (93 sets, daily range): BP systolic 89–141; BP diastolic 44–78
[2021-02-23] MEDS: INSULIN LISPRO 100 UNITS/ML SUBCUT SCH ×8 (00:23→22:20)
[2021-02-23] MEDS: INSULIN GLARGINE UD 100 UNITS/ML SYR SUBCUT SCH ×3 (00:24→22:19)
[2021-02-23] MEDS: IPRATROPIUM BROMIDE (0.02%) 0.5MG/2.5ML NEB HHN SCH ×4 (02:13→21:12)
[2021-02-23] MEDS: FENTANYL CITRATE/PF 2,500 MCG in SODIUM CHLORIDE 0.9% 200 ML IV PRN (02:20)
[2021-02-23] MEDS: METHYLPREDNISOLONE SOD SUCC 40 MG/ML VIAL IV SCH ×2 (02:33→09:37)
[2021-02-23] MEDS: POLYVINYL ALCOHOL OPHTH DROPS 15ML BOTHEYE SCH ×4 (02:33→17:10)
[2021-02-23] MEDS: LINEZOLID 600 MG PREMIX 300 ML IV SCH ×2 (02:34→15:28)
[2021-02-23] MEDS: MEROPENEM 1,000 MG in SODIUM CHLORIDE 0.9% 100 ML IV SCH ×2 (04:35→16:58)
[2021-02-23] MEDS: PHENYLEPHRINE 100 MG in DEXT 5% WATER 240 ML IV PRN ×3 (05:22→23:01)
[2021-02-23 05:44] LABS: HEMATOCRIT. 39.1 % (42.0-52.0); HEMOGLOBIN. 12.2 g/dL (14.0-18.0); MEAN CORPUSCULAR HEMOGLOBIN 29.7 pg (28.0-32.0); MEAN CORPUSCULAR VOLUME 95.3 fL (80.0-94.0); MEAN PLATELET VOLUME 10.6 fl (7.4-10.4); PLATELET 269 x1000/uL (130-400); RED CELL DISTRIBUTION WIDTH 16.5 % (11.6-14.6)
[2021-02-23] MEDS: BLOOD SUGAR DIAGNOSTIC STRIP TEST SCH ×5 (06:00→23:04)
[2021-02-23] MEDS: ACETYLCYSTEINE 100MG/ML 10% VIAL 4ML INH SCH (07:54)
[2021-02-23 08:32] LABS: BG CARBOXYHEMOGLOBIN 0.5 % (0.5-1.5); BG FRACTION INSPIRED OXYGEN 80; BG HCO3 ACT 27.4 mmol/L (22.0-26.0); BG METHEMOGLOBIN 0.2 % (0.0-1.5); BG OXYHEMOGLOBIN 95.3 % (94.0-97.0); BG PCO2 56.4 mmHg (35.0-45.0); BG PH 7.304 (7.350-7.450); BG PO2 86.7 mmHg (75.0-100.0); BG SAMPLE SITE LEFT RADIAL; BG TOTAL HEMOGLOBIN 13.1 g/dL (12.0-18.0); BG VENT MODE VENT - AC
[2021-02-23] MEDS: METOPROLOL TARTRATE 25MG TABLET PO SCH (09:00)
[2021-02-23] MEDS: ENOXAPARIN 40MG/0.4ML SYR SUBCUT SCH ×2 (09:37→21:24)
[2021-02-23] MEDS: SODIUM CHLORIDE 0.9% 1,000 ML IV SCH (09:37)
[2021-02-23 11:46] LABS: PLATELET ESTIMATE NORMAL
[2021-02-23] MEDS ORDERED: METHYLPREDNISOLONE SOD SUCC 40 MG/ML VIAL IV SCH (17:00)
[2021-02-23] MEDS: ACETAMINOPHEN 325MG TABLET PO PRN (21:25)
[2021-02-24] VITALS (100 sets, daily range): BP systolic 76–162; BP diastolic 41–92
[2021-02-24] MEDS: IPRATROPIUM BROMIDE (0.02%) 0.5MG/2.5ML NEB HHN SCH ×4 (00:45→20:28)
[2021-02-24] MEDS: LINEZOLID 600 MG PREMIX 300 ML IV SCH (01:47)
[2021-02-24] MEDS: POLYVINYL ALCOHOL OPHTH DROPS 15ML BOTHEYE SCH ×4 (01:47→17:12)
[2021-02-24] MEDS: MEROPENEM 1,000 MG in SODIUM CHLORIDE 0.9% 100 ML IV SCH ×2 (04:45→16:44)
[2021-02-24 05:43] LABS: BASOPHILS % 0.2 % (0.0-2.0); HEMATOCRIT. 40.4 % (42.0-52.0); HEMOGLOBIN. 12.6 g/dL (14.0-18.0); LYMPHOCYTES % 7.8 % (20.0-50.0); MEAN CORPUSCULAR HEMOGLOBIN 29.2 pg (28.0-32.0); MEAN CORPUSCULAR VOLUME 93.6 fL (80.0-94.0); MEAN PLATELET VOLUME 10.1 fl (7.4-10.4); MONOCYTES % 7.1 % (2.0-8.0); NEUTROPHILS % 84.9 % (40.0-76.0); PLATELET 290 x1000/uL (130-400); RED BLOOD CELL COUNT 4.32 mill/uL (4.7-6.1); RED CELL DISTRIBUTION WIDTH 16.5 % (11.6-14.6)
[2021-02-24] MEDS: BLOOD SUGAR DIAGNOSTIC STRIP TEST SCH ×3 (06:00→17:14)
[2021-02-24] MEDS: INSULIN LISPRO 100 UNITS/ML SUBCUT SCH ×6 (06:03→17:13)
[2021-02-24] MEDS: SODIUM CHLORIDE 0.9% 1,000 ML IV SCH (06:08)
[2021-02-24] MEDS ORDERED: METOPROLOL TARTRATE 25MG TABLET PO SCH (09:00)
[2021-02-24 09:08] LABS: BG BASE EXCESS 1.9 mmol/L (-2.0-2.0); BG CARBOXYHEMOGLOBIN 0.3 % (0.5-1.5); BG DEOXYHEMOGLOBIN 1.4 % (0.0-5.0); BG FRACTION INSPIRED OXYGEN 70; BG HCO3 ACT 26.3 mmol/L (22.0-26.0); BG METHEMOGLOBIN 0.3 % (0.0-1.5); BG OXYGEN SATURATION 98.6 % (92.0-98.5); BG PCO2 40.2 mmHg (35.0-45.0); BG PH 7.433 (7.350-7.450); BG PO2 130.2 mmHg (75.0-100.0); BG SAMPLE SITE RIGHT RADIAL; BG TOTAL HEMOGLOBIN 12.2 g/dL (12.0-18.0); BG VENT MODE VENT- PRVC
[2021-02-24] MEDS: PHENYLEPHRINE 100 MG in DEXT 5% WATER 240 ML IV PRN ×2 (09:30→21:21)
[2021-02-24] MEDS: ENOXAPARIN 40MG/0.4ML SYR SUBCUT SCH ×2 (10:56→21:00)
[2021-02-24] MEDS: INSULIN GLARGINE UD 100 UNITS/ML SYR SUBCUT SCH ×2 (10:58→22:25)
[2021-02-24] MEDS: ACETAMINOPHEN 325MG TABLET PO PRN (18:04)
[2021-02-25] VITALS (96 sets, daily range): BP systolic 81–133; BP diastolic 31–80
[2021-02-25] MEDS: BLOOD SUGAR DIAGNOSTIC STRIP TEST SCH ×4 (00:20→17:56)
[2021-02-25] MEDS: POLYVINYL ALCOHOL OPHTH DROPS 15ML BOTHEYE SCH ×4 (00:29→17:59)
[2021-02-25] MEDS: INSULIN LISPRO 100 UNITS/ML SUBCUT SCH ×7 (00:32→17:56)
[2021-02-25] MEDS: IPRATROPIUM BROMIDE (0.02%) 0.5MG/2.5ML NEB HHN SCH ×4 (01:41→20:40)
[2021-02-25] MEDS: SODIUM CHLORIDE 0.9% 1,000 ML IV SCH (03:23)
[2021-02-25] MEDS: MEROPENEM 1,000 MG in SODIUM CHLORIDE 0.9% 100 ML IV SCH ×2 (05:11→17:57)
[2021-02-25 05:51] LABS: HEMATOCRIT. 37.7 % (42.0-52.0); HEMOGLOBIN. 11.8 g/dL (14.0-18.0); MEAN CORPUSCULAR HEMOGLOBIN 29.6 pg (28.0-32.0); MEAN CORPUSCULAR VOLUME 94.8 fL (80.0-94.0); MEAN PLATELET VOLUME 10.1 fl (7.4-10.4); PLATELET 337 x1000/uL (130-400); RED BLOOD CELL COUNT 3.97 mill/uL (4.7-6.1); RED CELL DISTRIBUTION WIDTH 16.3 % (11.6-14.6)
[2021-02-25] MEDS: ACETAMINOPHEN 325MG TABLET PO PRN ×2 (05:58→17:59)
[2021-02-25] MEDS: PHENYLEPHRINE 100 MG in DEXT 5% WATER 240 ML IV PRN (07:12)
[2021-02-25 09:27] LABS: BG BASE EXCESS 5.3 mmol/L (-2.0-2.0); BG CARBOXYHEMOGLOBIN 0.3 % (0.5-1.5); BG DEOXYHEMOGLOBIN 2.3 % (0.0-5.0); BG FRACTION INSPIRED OXYGEN 70; BG METHEMOGLOBIN 0.3 % (0.0-1.5); BG OXYGEN SATURATION 97.7 % (92.0-98.5); BG OXYHEMOGLOBIN 97.1 % (94.0-97.0); BG PH 7.489 (7.350-7.450); BG PO2 101.9 mmHg (75.0-100.0); BG SAMPLE SITE RIGHT RADIAL; BG TOTAL HEMOGLOBIN 12.2 g/dL (12.0-18.0); BG VENT MODE VENT- PRVC
[2021-02-25] MEDS: ENOXAPARIN 40MG/0.4ML SYR SUBCUT SCH (10:12)
[2021-02-25] MEDS: INSULIN GLARGINE UD 100 UNITS/ML SYR SUBCUT SCH ×2 (10:13→22:00)
[2021-02-25] MEDS: PANTOPRAZOLE SODIUM 40 MG/VIAL IV SCH ×2 (13:31→17:57)
[2021-02-25 13:44] LABS: TOTAL IRON BINDING CAPACITY 234 ug/dL (250-450)
[2021-02-25 14:15] LABS: VITAMIN B12 SERUM 1101 pg/mL (211-911)
[2021-02-25 14:26] LABS: PLATELET ESTIMATE NORMAL
[2021-02-25 17:43] LABS: FERRITIN 633 ng/mL (22-322)
[2021-02-25] MEDS: MIDODRINE HCL 5MG TABLET PO SCH (17:57)
[2021-02-25] MEDS: SUCRALFATE 1 G/10 ML UDC PO SCH (17:57)
[2021-02-25 18:24] LABS: HEMATOCRIT 33.9 % (42.0-52.0)
[2021-02-26] VITALS (72 sets, daily range): BP systolic 87–149; BP diastolic 47–80
[2021-02-26] MEDS: SODIUM CHLORIDE 0.9% 1,000 ML IV SCH (00:48)
[2021-02-26] MEDS: SUCRALFATE 1 G/10 ML UDC PO SCH ×4 (00:48→18:18)
[2021-02-26] MEDS: POLYVINYL ALCOHOL OPHTH DROPS 15ML BOTHEYE SCH ×4 (00:48→18:18)
[2021-02-26] MEDS: BLOOD SUGAR DIAGNOSTIC STRIP TEST SCH ×5 (00:49→23:11)
[2021-02-26 01:24] LABS: HEMATOCRIT 34.7 % (42.0-52.0); HEMOGLOBIN 11.1 g/dL (14.0-18.0)
[2021-02-26] MEDS: IPRATROPIUM BROMIDE (0.02%) 0.5MG/2.5ML NEB HHN SCH ×4 (01:49→20:34)
[2021-02-26] MEDS: MEROPENEM 1,000 MG in SODIUM CHLORIDE 0.9% 100 ML IV SCH ×2 (04:06→16:39)
[2021-02-26] MEDS: INSULIN LISPRO 100 UNITS/ML SUBCUT SCH ×10 (05:21→23:12)
[2021-02-26 05:48] LABS: HEMATOCRIT. 35.5 % (42.0-52.0); HEMOGLOBIN. 11.2 g/dL (14.0-18.0); MEAN CORPUSCULAR HEMOGLOBIN 29.7 pg (28.0-32.0); MEAN CORPUSCULAR VOLUME 94.3 fL (80.0-94.0); MEAN PLATELET VOLUME 9.3 fl (7.4-10.4); PLATELET 301 x1000/uL (130-400); RED BLOOD CELL COUNT 3.76 mill/uL (4.7-6.1); RED CELL DISTRIBUTION WIDTH 15.9 % (11.6-14.6)
[2021-02-26 06:35] LABS: CHLORIDE 118 mEq/L (98-107)
[2021-02-26] MEDS: MIDODRINE HCL 5MG TABLET PO SCH ×3 (08:45→18:18)
[2021-02-26] MEDS: PANTOPRAZOLE SODIUM 40 MG/VIAL IV SCH ×2 (08:45→18:18)
[2021-02-26] MEDS: SODIUM CHLORIDE 0.45% 1,000 ML IV SCH (08:45)
[2021-02-26 10:17] LABS: BG BASE EXCESS 3.6 mmol/L (-2.0-2.0); BG CARBOXYHEMOGLOBIN 0.4 % (0.5-1.5); BG DEOXYHEMOGLOBIN 0.7 % (0.0-5.0); BG FRACTION INSPIRED OXYGEN 70; BG HCO3 ACT 27.8 mmol/L (22.0-26.0); BG METHEMOGLOBIN 0.2 % (0.0-1.5); BG OXYGEN SATURATION 99.3 % (92.0-98.5); BG OXYHEMOGLOBIN 98.7 % (94.0-97.0); BG PCO2 40.6 mmHg (35.0-45.0); BG PH 7.454 (7.350-7.450); BG PO2 194.2 mmHg (75.0-100.0); BG SAMPLE SITE RIGHT RADIAL; BG TOTAL HEMOGLOBIN 12.9 g/dL (12.0-18.0); BG VENT MODE VENT - APRV
[2021-02-26] MEDS: INSULIN GLARGINE UD 100 UNITS/ML SYR SUBCUT SCH ×2 (12:24→22:00)
[2021-02-26 15:19] LABS: PLATELET ESTIMATE NORMAL
[2021-02-27] VITALS (75 sets, daily range): BP systolic 91–162; BP diastolic 49–95
[2021-02-27] MEDS: SUCRALFATE 1 G/10 ML UDC PO SCH ×4 (00:37→18:02)
[2021-02-27] MEDS: POLYVINYL ALCOHOL OPHTH DROPS 15ML BOTHEYE SCH ×4 (00:37→18:03)
[2021-02-27] MEDS: IPRATROPIUM BROMIDE (0.02%) 0.5MG/2.5ML NEB HHN SCH ×4 (02:25→20:16)
[2021-02-27] MEDS: SODIUM CHLORIDE 0.45% 1,000 ML IV SCH (05:05)
[2021-02-27] MEDS: BLOOD SUGAR DIAGNOSTIC STRIP TEST SCH ×3 (05:49→17:49)
[2021-02-27] MEDS: INSULIN LISPRO 100 UNITS/ML SUBCUT SCH ×6 (05:50→18:05)
[2021-02-27 05:52] LABS: CHLORIDE 119 mEq/L (98-107); HEMATOCRIT. 34.8 % (42.0-52.0); HEMOGLOBIN. 11.2 g/dL (14.0-18.0); MEAN CORPUSCULAR HEMOGLOBIN 30.8 pg (28.0-32.0); MEAN CORPUSCULAR VOLUME 95.8 fL (80.0-94.0); MEAN PLATELET VOLUME 9.8 fl (7.4-10.4); PLATELET 291 x1000/uL (130-400); RED BLOOD CELL COUNT 3.64 mill/uL (4.7-6.1); RED CELL DISTRIBUTION WIDTH 16.1 % (11.6-14.6)
[2021-02-27] MEDS: MIDODRINE HCL 5MG TABLET PO SCH ×3 (08:51→18:03)
[2021-02-27] MEDS: PANTOPRAZOLE SODIUM 40 MG/VIAL IV SCH ×2 (08:51→18:03)
[2021-02-27] MEDS: INSULIN GLARGINE UD 100 UNITS/ML SYR SUBCUT SCH ×2 (08:53→21:46)
[2021-02-27 08:56] LABS: BG BASE EXCESS 3.7 mmol/L (-2.0-2.0); BG FRACTION INSPIRED OXYGEN 50; BG HCO3 ACT 27.7 mmol/L (22.0-26.0); BG METHEMOGLOBIN 0.2 % (0.0-1.5); BG OXYHEMOGLOBIN 98.8 % (94.0-97.0); BG PCO2 39.6 mmHg (35.0-45.0); BG PH 7.462 (7.350-7.450); BG PO2 153.2 mmHg (75.0-100.0); BG SAMPLE SITE LEFT RADIAL; BG TOTAL HEMOGLOBIN 11.6 g/dL (12.0-18.0); BG VENT MODE PRVC
[2021-02-27 14:49] LABS: PLATELET ESTIMATE NORMAL
[2021-02-27] MEDS ORDERED: DEXT 5%/0.45% NACL 500ML 500 ML IV ONE (18:00)
[2021-02-27] MEDS ORDERED: *PATIENT'S OWN MEDICATION STORAGE XX SCH (23:45)
[2021-02-28] VITALS (11 sets, daily range): BP systolic 110–140; BP diastolic 59–79
[2021-02-28] MEDS: BLOOD SUGAR DIAGNOSTIC STRIP TEST SCH ×5 (00:09→23:32)
[2021-02-28] MEDS: SODIUM CHLORIDE 0.45% 1,000 ML IV SCH (00:21)
[2021-02-28] MEDS: POLYVINYL ALCOHOL OPHTH DROPS 15ML BOTHEYE SCH ×5 (00:41→23:31)
[2021-02-28] MEDS: IPRATROPIUM BROMIDE (0.02%) 0.5MG/2.5ML NEB HHN SCH ×4 (01:33→19:48)
[2021-02-28] MEDS: SUCRALFATE 1 G/10 ML UDC PO SCH ×5 (05:08→23:38)
[2021-02-28] MEDS: INSULIN LISPRO 100 UNITS/ML SUBCUT SCH ×10 (05:09→23:31)
[2021-02-28] MEDS: MIDODRINE HCL 5MG TABLET PO SCH ×3 (08:08→17:00)
[2021-02-28 08:20] LABS: BASOPHILS % 0.4 % (0.0-2.0); EOSINOPHILS % 1.4 % (0.0-5.0); HEMATOCRIT. 31.9 % (42.0-52.0); HEMOGLOBIN. 10.2 g/dL (14.0-18.0); LYMPHOCYTES % 8.1 % (20.0-50.0); MEAN CORPUSCULAR HEMOGLOBIN 30.2 pg (28.0-32.0); MEAN CORPUSCULAR VOLUME 94.1 fL (80.0-94.0); MEAN PLATELET VOLUME 9.8 fl (7.4-10.4); MONOCYTES % 4.9 % (2.0-8.0); NEUTROPHILS % 85.2 % (40.0-76.0); PLATELET 295 x1000/uL (130-400); RED BLOOD CELL COUNT 3.39 mill/uL (4.7-6.1); RED CELL DISTRIBUTION WIDTH 15.9 % (11.6-14.6)
[2021-02-28] MEDS: PANTOPRAZOLE SODIUM 40 MG/VIAL IV SCH ×2 (08:21→16:38)
[2021-02-28 08:26] LABS: INR 1.2; PROTHROMBIN TIME 12.3 sec (9.6-11.0)
[2021-02-28 08:29] LABS: CHLORIDE 118 mEq/L (98-107)
[2021-02-28] MEDS: INSULIN GLARGINE UD 100 UNITS/ML SYR SUBCUT SCH ×2 (10:00→22:00)
[2021-02-28] MEDS ORDERED: METRONIDAZOLE 500 MG PREMIX 100 ML IV NR (11:00)
[2021-02-28] MEDS ORDERED: LEVOFLOXACIN 500MG PREMIX 100 ML IV NR (11:00)
[2021-02-28 14:15] LABS: BG CARBOXYHEMOGLOBIN 0.3 % (0.5-1.5); BG DEOXYHEMOGLOBIN 5.9 % (0.0-5.0); BG FRACTION INSPIRED OXYGEN 30; BG METHEMOGLOBIN 0.2 % (0.0-1.5); BG OXYGEN SATURATION 94.1 % (92.0-98.5); BG OXYHEMOGLOBIN 93.6 % (94.0-97.0); BG PCO2 34.8 mmHg (35.0-45.0); BG PH 7.508 (7.350-7.450); BG PO2 70.5 mmHg (75.0-100.0); BG VENT MODE VENT - AC
[2021-02-28] MEDS ORDERED: FENTANYL CITRATE/PF 50MCG/ML 2ML VIAL ONE (14:21)
[2021-02-28] MEDS ORDERED: MIDAZOLAM HCL 5 MG/5 ML VIAL ONE (14:21)
[2021-03-01] VITALS (15 sets, daily range): BP systolic 99–146; BP diastolic 59–103
[2021-03-01] MEDS: IPRATROPIUM BROMIDE (0.02%) 0.5MG/2.5ML NEB HHN SCH ×4 (02:02→21:18)
[2021-03-01] MEDS: INSULIN LISPRO 100 UNITS/ML SUBCUT SCH ×7 (05:47→23:51)
[2021-03-01] MEDS: SUCRALFATE 1 G/10 ML UDC PO SCH ×4 (05:48→23:50)
[2021-03-01] MEDS: BLOOD SUGAR DIAGNOSTIC STRIP TEST SCH ×3 (05:55→17:22)
[2021-03-01] MEDS: POLYVINYL ALCOHOL OPHTH DROPS 15ML BOTHEYE SCH ×4 (05:56→23:50)
[2021-03-01 06:04] LABS: BASOPHILS % 0.4 % (0.0-2.0); EOSINOPHILS % 1.4 % (0.0-5.0); HEMATOCRIT. 31.2 % (42.0-52.0); LYMPHOCYTES % 10.3 % (20.0-50.0); MEAN CORPUSCULAR HEMOGLOBIN 30.7 pg (28.0-32.0); MEAN CORPUSCULAR VOLUME 95.5 fL (80.0-94.0); MONOCYTES % 5.6 % (2.0-8.0); NEUTROPHILS % 82.3 % (40.0-76.0); PLATELET 277 x1000/uL (130-400); RED BLOOD CELL COUNT 3.26 mill/uL (4.7-6.1)
[2021-03-01 06:30] LABS: CHLORIDE 122 mEq/L (98-107)
[2021-03-01] MEDS: PANTOPRAZOLE SODIUM 40 MG/VIAL IV SCH ×2 (09:31→17:21)
[2021-03-01] MEDS: MIDODRINE HCL 5MG TABLET PO SCH ×3 (09:32→17:20)
[2021-03-01] MEDS: ACETAMINOPHEN 325MG TABLET PO PRN ×2 (09:32→17:21)
[2021-03-01] MEDS: INSULIN GLARGINE UD 100 UNITS/ML SYR SUBCUT SCH ×2 (09:48→22:14)
[2021-03-02] VITALS (12 sets, daily range): BP systolic 107–159; BP diastolic 58–90
[2021-03-02] MEDS: INSULIN LISPRO 100 UNITS/ML SUBCUT SCH ×9 (01:19→23:58)
[2021-03-02] MEDS: IPRATROPIUM BROMIDE (0.02%) 0.5MG/2.5ML NEB HHN SCH ×4 (02:22→21:01)
[2021-03-02] MEDS: SUCRALFATE 1 G/10 ML UDC PO SCH ×4 (05:02→23:54)
[2021-03-02] MEDS: POLYVINYL ALCOHOL OPHTH DROPS 15ML BOTHEYE SCH ×4 (05:02→23:54)
[2021-03-02] MEDS: BLOOD SUGAR DIAGNOSTIC STRIP TEST SCH ×4 (05:38→17:28)
[2021-03-02 06:44] LABS: CHLORIDE 124 mEq/L (98-107)
[2021-03-02] MEDS: MIDODRINE HCL 5MG TABLET PO SCH ×3 (08:08→17:27)
[2021-03-02] MEDS: PANTOPRAZOLE SODIUM 40 MG/VIAL IV SCH ×2 (08:08→17:26)
[2021-03-02] MEDS: INSULIN GLARGINE UD 100 UNITS/ML SYR SUBCUT SCH ×2 (09:06→21:35)
[2021-03-02] MEDS: DEXTROSE 5% WATER 1,000 ML IV SCH (11:00)
[2021-03-02] MEDS: ACETAMINOPHEN 325MG TABLET PO PRN ×2 (11:54→23:59)
[2021-03-02 15:21] LABS: BASOPHILS % 0.5 % (0.0-2.0); EOSINOPHILS % 2.2 % (0.0-5.0); HEMATOCRIT. 32.1 % (42.0-52.0); HEMOGLOBIN. 9.8 g/dL (14.0-18.0); LYMPHOCYTES % 9.4 % (20.0-50.0); MEAN CORPUSCULAR HEMOGLOBIN 29.9 pg (28.0-32.0); MEAN PLATELET VOLUME 10.1 fl (7.4-10.4); MONOCYTES % 5.8 % (2.0-8.0); NEUTROPHILS % 82.1 % (40.0-76.0); PLATELET 238 x1000/uL (130-400); RED BLOOD CELL COUNT 3.27 mill/uL (4.7-6.1); RED CELL DISTRIBUTION WIDTH 16.3 % (11.6-14.6)
[2021-03-02 16:24] LABS: BG CARBOXYHEMOGLOBIN 0.3 % (0.5-1.5); BG DEOXYHEMOGLOBIN 5.2 % (0.0-5.0); BG FRACTION INSPIRED OXYGEN 30; BG HCO3 ACT 27.9 mmol/L (22.0-26.0); BG OXYGEN SATURATION 94.8 % (92.0-98.5); BG OXYHEMOGLOBIN 94.5 % (94.0-97.0); BG PCO2 39.2 mmHg (35.0-45.0); BG PO2 73.9 mmHg (75.0-100.0); BG SAMPLE SITE RIGHT RADIAL; BG TOTAL HEMOGLOBIN 10.9 g/dL (12.0-18.0); BG VENT MODE VENT - PRVC
[2021-03-03] VITALS (10 sets, daily range): BP systolic 94–130; BP diastolic 45–75
[2021-03-03] MEDS: IPRATROPIUM BROMIDE (0.02%) 0.5MG/2.5ML NEB HHN SCH ×4 (01:48→20:38)
[2021-03-03] MEDS: SUCRALFATE 1 G/10 ML UDC PO SCH ×4 (04:57→23:03)
[2021-03-03] MEDS: INSULIN LISPRO 100 UNITS/ML SUBCUT SCH ×8 (05:03→23:05)
[2021-03-03] MEDS: BLOOD SUGAR DIAGNOSTIC STRIP TEST SCH ×5 (05:04→23:05)
[2021-03-03] MEDS: POLYVINYL ALCOHOL OPHTH DROPS 15ML BOTHEYE SCH ×4 (05:05→23:11)
[2021-03-03] MEDS: DEXTROSE 5% WATER 1,000 ML IV SCH (07:32)
[2021-03-03 08:15] LABS: CHLORIDE 126 mEq/L (98-107)
[2021-03-03] MEDS: PANTOPRAZOLE SODIUM 40 MG/VIAL IV SCH ×2 (09:25→17:25)
[2021-03-03] MEDS: INSULIN GLARGINE UD 100 UNITS/ML SYR SUBCUT SCH ×2 (09:25→21:45)
[2021-03-03] MEDS: MIDODRINE HCL 5MG TABLET PO SCH ×3 (09:39→17:24)
[2021-03-03] MEDS ORDERED: BUPIVACAINE HCL/PF 0.5% (5MG/ML) 10ML ONE (10:08)
[2021-03-03] MEDS ORDERED: POLYMYXIN B SULFATE 500000 UNITS/VIAL ONE (10:09)
[2021-03-03 11:27] LABS: BASOPHILS % 0.2 % (0.0-2.0); EOSINOPHILS % 2.2 % (0.0-5.0); HEMATOCRIT. 31.6 % (42.0-52.0); LYMPHOCYTES % 10.6 % (20.0-50.0); MEAN CORPUSCULAR HEMOGLOBIN 30.5 pg (28.0-32.0); MEAN CORPUSCULAR VOLUME 96.4 fL (80.0-94.0); MONOCYTES % 5.8 % (2.0-8.0); NEUTROPHILS % 81.2 % (40.0-76.0); PLATELET 246 x1000/uL (130-400); RED BLOOD CELL COUNT 3.28 mill/uL (4.7-6.1); RED CELL DISTRIBUTION WIDTH 16.2 % (11.6-14.6)
[2021-03-03] MEDS ORDERED: ROCURONIUM BROMIDE 10MG/ML VIAL 5ML IV ONE (12:08)
[2021-03-03] MEDS ORDERED: CLINDAMYCIN 900 MG PREMIX 50 ML IV ONE (12:08)
[2021-03-03] MEDS ORDERED: LIDOCAINE HCL 1% 20ML VIAL (Pyxis) INJ ONE (12:39)
[2021-03-03] MEDS: ACETAMINOPHEN 325MG TABLET PO PRN ×2 (15:02→23:03)
[2021-03-03 16:56] LABS: CLARITY URINE CLEAR (CLEAR); COLOR URINE YELLOW (YELLOW); KETONES URINE NEGATIVE (NEGATIVE); LEUKOCYTE ESTERASE URINE NEGATIVE (NEGATIVE); NITRITE URINE NEGATIVE (NEGATIVE); OCCULT BLOOD URINE 1+ (NEGATIVE); PROTEIN URINE 1+ (NEGATIVE); UROBILINOGEN URINE 0.2 E.U./dL (0.2-1.0)
[2021-03-03] MEDS: CEFEPIME 1,000 MG in DEXTROSE 5% WATER 50 ML IV SCH (18:37)
[2021-03-04] VITALS (50 sets, daily range): BP systolic 80–143; BP diastolic 47–82
[2021-03-04] MEDS: IPRATROPIUM BROMIDE (0.02%) 0.5MG/2.5ML NEB HHN SCH ×4 (01:38→20:08)
[2021-03-04] MEDS: DEXTROSE 5% WATER 1,000 ML IV SCH ×2 (02:35→22:10)
[2021-03-04] MEDS: BLOOD SUGAR DIAGNOSTIC STRIP TEST SCH ×3 (05:37→17:43)
[2021-03-04] MEDS: INSULIN LISPRO 100 UNITS/ML SUBCUT SCH ×6 (05:38→17:43)
[2021-03-04] MEDS: SUCRALFATE 1 G/10 ML UDC PO SCH ×3 (05:39→17:50)
[2021-03-04] MEDS: CEFEPIME 1,000 MG in DEXTROSE 5% WATER 50 ML IV SCH ×2 (05:43→18:32)
[2021-03-04] MEDS: POLYVINYL ALCOHOL OPHTH DROPS 15ML BOTHEYE SCH ×3 (05:46→17:51)
[2021-03-04 07:24] LABS: HEMATOCRIT. 32.9 % (42.0-52.0); HEMOGLOBIN. 10.1 g/dL (14.0-18.0); MEAN CORPUSCULAR HEMOGLOBIN 29.9 pg (28.0-32.0); MEAN CORPUSCULAR VOLUME 97.7 fL (80.0-94.0); MEAN PLATELET VOLUME 10.2 fl (7.4-10.4); PLATELET 240 x1000/uL (130-400); RED BLOOD CELL COUNT 3.37 mill/uL (4.7-6.1); RED CELL DISTRIBUTION WIDTH 16.7 % (11.6-14.6)
[2021-03-04 07:47] LABS: CHLORIDE 125 mEq/L (98-107)
[2021-03-04] MEDS ORDERED: LIDOCAINE HCL 1% 20ML VIAL (Pyxis) INJ ONE (08:25)
[2021-03-04] MEDS: MIDODRINE HCL 5MG TABLET PO SCH ×3 (09:57→17:50)
[2021-03-04] MEDS: PANTOPRAZOLE SODIUM 40 MG/VIAL IV SCH ×2 (09:58→17:50)
[2021-03-04] MEDS: INSULIN GLARGINE UD 100 UNITS/ML SYR SUBCUT SCH ×2 (09:59→21:36)
[2021-03-04] MEDS ORDERED: SODIUM CHLORIDE 0.45% 500 ML IV ONE (11:00)
[2021-03-04] MEDS: ACETAMINOPHEN 325MG TABLET PO PRN ×2 (12:02→22:10)
[2021-03-04] MEDS ORDERED: SODIUM CHLORIDE 0.45% 500 ML IV SCH (12:45)
[2021-03-04] MEDS: PHENYLEPHRINE 100 MG in DEXT 5% WATER 240 ML IV PRN ×2 (16:40→23:32)
[2021-03-04 17:08] LABS: PLATELET ESTIMATE NORMAL
[2021-03-04] MEDS: MEROPENEM 1,000 MG in SODIUM CHLORIDE 0.9% 100 ML IV SCH (21:07)
[2021-03-05] VITALS (102 sets, daily range): BP systolic 63–171; BP diastolic 41–92
[2021-03-05] MEDS: POLYVINYL ALCOHOL OPHTH DROPS 15ML BOTHEYE SCH ×4 (00:07→17:43)
[2021-03-05] MEDS: SUCRALFATE 1 G/10 ML UDC PO SCH ×4 (00:07→17:41)
[2021-03-05] MEDS: INSULIN LISPRO 100 UNITS/ML SUBCUT SCH ×9 (00:08→17:43)
[2021-03-05] MEDS: IPRATROPIUM BROMIDE (0.02%) 0.5MG/2.5ML NEB HHN SCH ×4 (01:46→19:51)
[2021-03-05] MEDS: MEROPENEM 1,000 MG in SODIUM CHLORIDE 0.9% 100 ML IV SCH ×3 (01:50→17:44)
[2021-03-05] MEDS: PHENYLEPHRINE 100 MG in DEXT 5% WATER 240 ML IV PRN ×6 (02:35→22:43)
[2021-03-05 06:07] LABS: HEMATOCRIT. 30.5 % (42.0-52.0); HEMOGLOBIN. 9.1 g/dL (14.0-18.0); MEAN CORPUSCULAR HEMOGLOBIN 29.2 pg (28.0-32.0); MEAN CORPUSCULAR VOLUME 97.6 fL (80.0-94.0); MEAN PLATELET VOLUME 10.5 fl (7.4-10.4); PLATELET 272 x1000/uL (130-400); RED BLOOD CELL COUNT 3.12 mill/uL (4.7-6.1); RED CELL DISTRIBUTION WIDTH 16.6 % (11.6-14.6)
[2021-03-05] MEDS: BLOOD SUGAR DIAGNOSTIC STRIP TEST SCH ×4 (06:07→17:33)
[2021-03-05] MEDS: MIDODRINE HCL 5MG TABLET PO SCH ×3 (09:50→17:41)
[2021-03-05] MEDS: PANTOPRAZOLE SODIUM 40 MG/VIAL IV SCH ×2 (09:51→17:41)
[2021-03-05] MEDS: INSULIN GLARGINE UD 100 UNITS/ML SYR SUBCUT SCH ×2 (09:51→22:03)
[2021-03-05 11:29] LABS: BG BASE EXCESS -1.8 mmol/L (-2.0-2.0); BG CARBOXYHEMOGLOBIN 0.3 % (0.5-1.5); BG DEOXYHEMOGLOBIN 10.1 % (0.0-5.0); BG FRACTION INSPIRED OXYGEN 30; BG HCO3 ACT 21.3 mmol/L (22.0-26.0); BG METHEMOGLOBIN 0.5 % (0.0-1.5); BG OXYGEN SATURATION 89.8 % (92.0-98.5); BG OXYHEMOGLOBIN 89.1 % (94.0-97.0); BG PCO2 30.2 mmHg (35.0-45.0); BG PH 7.466 (7.350-7.450); BG PO2 56.4 mmHg (75.0-100.0); BG SAMPLE SITE RIGHT RADIAL; BG VENT MODE VENT- PRVC
[2021-03-05 12:10] LABS: PLATELET ESTIMATE NORMAL
[2021-03-05] MEDS: LINEZOLID 600 MG PREMIX 300 ML IV SCH (15:16)
[2021-03-05] MEDS: DEXTROSE 5% WATER 1,000 ML IV SCH (22:02)
[2021-03-06] VITALS (86 sets, daily range): BP systolic 82–157; BP diastolic 46–90
[2021-03-06] MEDS: SUCRALFATE 1 G/10 ML UDC PO SCH ×4 (00:41→17:05)
[2021-03-06] MEDS: ACETAMINOPHEN 325MG TABLET PO PRN ×2 (00:41→07:08)
[2021-03-06] MEDS: INSULIN LISPRO 100 UNITS/ML SUBCUT SCH ×8 (00:42→17:58)
[2021-03-06] MEDS: POLYVINYL ALCOHOL OPHTH DROPS 15ML BOTHEYE SCH ×4 (01:02→17:24)
[2021-03-06] MEDS: PHENYLEPHRINE 100 MG in DEXT 5% WATER 240 ML IV PRN ×5 (01:44→21:01)
[2021-03-06] MEDS: MEROPENEM 1,000 MG in SODIUM CHLORIDE 0.9% 100 ML IV SCH ×2 (01:48→09:38)
[2021-03-06] MEDS: IPRATROPIUM BROMIDE (0.02%) 0.5MG/2.5ML NEB HHN SCH ×4 (01:50→20:35)
[2021-03-06] MEDS: LINEZOLID 600 MG PREMIX 300 ML IV SCH ×2 (04:12→15:06)
[2021-03-06] MEDS: BLOOD SUGAR DIAGNOSTIC STRIP TEST SCH ×4 (05:38→17:31)
[2021-03-06] MEDS ORDERED: BISACODYL 10MG SUPP PR PRN (06:00)
[2021-03-06 06:36] LABS: BASOPHILS % 0.2 % (0.0-2.0); EOSINOPHILS % 3.1 % (0.0-5.0); HEMATOCRIT. 28.5 % (42.0-52.0); HEMOGLOBIN. 8.8 g/dL (14.0-18.0); LYMPHOCYTES % 7.5 % (20.0-50.0); MEAN CORPUSCULAR HEMOGLOBIN 29.8 pg (28.0-32.0); MEAN CORPUSCULAR VOLUME 96.4 fL (80.0-94.0); MEAN PLATELET VOLUME 10.7 fl (7.4-10.4); MONOCYTES % 3.8 % (2.0-8.0); NEUTROPHILS % 85.4 % (40.0-76.0); PLATELET 236 x1000/uL (130-400); RED BLOOD CELL COUNT 2.96 mill/uL (4.7-6.1); RED CELL DISTRIBUTION WIDTH 16.7 % (11.6-14.6)
[2021-03-06] MEDS: MIDODRINE HCL 5MG TABLET PO SCH ×4 (09:00→17:00)
[2021-03-06] MEDS: BISACODYL 5MG TABLET PO SCH ×2 (09:00→09:39)
[2021-03-06] MEDS: PANTOPRAZOLE SODIUM 40 MG/VIAL IV SCH ×2 (09:38→17:24)
[2021-03-06] MEDS: POTASSIUM CHLORIDE 20MEQ TABLET SR PO SCH ×2 (09:42→10:00)
[2021-03-06] MEDS: INSULIN GLARGINE UD 100 UNITS/ML SYR SUBCUT SCH ×2 (09:48→21:02)
[2021-03-06 11:19] LABS: BG CARBOXYHEMOGLOBIN 0.3 % (0.5-1.5); BG DEOXYHEMOGLOBIN 2.1 % (0.0-5.0); BG FRACTION INSPIRED OXYGEN 30; BG HCO3 ACT 20.8 mmol/L (22.0-26.0); BG METHEMOGLOBIN 0.3 % (0.0-1.5); BG OXYGEN SATURATION 97.9 % (92.0-98.5); BG OXYHEMOGLOBIN 97.3 % (94.0-97.0); BG PCO2 28.7 mmHg (35.0-45.0); BG PH 7.477 (7.350-7.450); BG PO2 107.3 mmHg (75.0-100.0); BG SAMPLE SITE LEFT RADIAL; BG TOTAL HEMOGLOBIN 9.9 g/dL (12.0-18.0); BG VENT MODE VENT- PRVC
[2021-03-06] MEDS ORDERED: POTASSIUM CHLORIDE INJ 40 MEQ in DEXT 5% WATER 250 ML IV NR (13:00)
[2021-03-06] MEDS: DEXTROSE 5% WATER 1,000 ML IV SCH (15:06)
[2021-03-06] MEDS ORDERED: ACETAMINOPHEN 650MG SUPP PR PRN (17:00)
[2021-03-06] MEDS: MEROPENEM-0.9% SODIUM CHLORIDE 50 ML IV SCH (17:24)
[2021-03-06] MEDS: SENNOSIDES 8.6MG TABLET PO SCH (21:00)
[2021-03-07] VITALS (96 sets, daily range): BP systolic 81–164; BP diastolic 39–99
[2021-03-07] MEDS: IPRATROPIUM BROMIDE (0.02%) 0.5MG/2.5ML NEB HHN SCH ×4 (01:25→20:17)
[2021-03-07] MEDS: DEXTROSE 5% WATER 1,000 ML IV SCH ×2 (01:50→21:37)
[2021-03-07] MEDS: MEROPENEM-0.9% SODIUM CHLORIDE 50 ML IV SCH ×2 (01:50→09:21)
[2021-03-07] MEDS: POLYVINYL ALCOHOL OPHTH DROPS 15ML BOTHEYE SCH ×4 (01:51→18:20)
[2021-03-07] MEDS: SUCRALFATE 1 G/10 ML UDC PO SCH ×5 (01:53→18:00)
[2021-03-07] MEDS: PHENYLEPHRINE 100 MG in DEXT 5% WATER 240 ML IV PRN ×6 (01:56→21:37)
[2021-03-07] MEDS ORDERED: INSULIN LISPRO 100 UNITS/ML SUBCUT SCH (03:30)
[2021-03-07] MEDS: LINEZOLID 600 MG PREMIX 300 ML IV SCH ×2 (03:43→14:54)
[2021-03-07] MEDS: BLOOD SUGAR DIAGNOSTIC STRIP TEST SCH ×4 (06:00→18:09)
[2021-03-07 06:08] LABS: BASOPHILS % 0.4 % (0.0-2.0); EOSINOPHILS % 3.9 % (0.0-5.0); HEMATOCRIT. 29.9 % (42.0-52.0); HEMOGLOBIN. 9.2 g/dL (14.0-18.0); LYMPHOCYTES % 8.9 % (20.0-50.0); MEAN CORPUSCULAR HEMOGLOBIN 29.7 pg (28.0-32.0); MEAN CORPUSCULAR VOLUME 96.8 fL (80.0-94.0); MEAN PLATELET VOLUME 10.4 fl (7.4-10.4); MONOCYTES % 5.3 % (2.0-8.0); NEUTROPHILS % 81.5 % (40.0-76.0); PLATELET 225 x1000/uL (130-400); RED BLOOD CELL COUNT 3.09 mill/uL (4.7-6.1); RED CELL DISTRIBUTION WIDTH 16.8 % (11.6-14.6)
[2021-03-07 06:13] LABS: CHLORIDE 116 mEq/L (98-107)
[2021-03-07] MEDS: INSULIN LISPRO 100 UNITS/ML SUBCUT SCH ×7 (07:13→18:22)
[2021-03-07] MEDS: MIDODRINE HCL 5MG TABLET PO SCH ×3 (09:00→17:00)
[2021-03-07] MEDS: BISACODYL 5MG TABLET PO SCH (09:00)
[2021-03-07] MEDS: PANTOPRAZOLE SODIUM 40 MG/VIAL IV SCH ×2 (09:21→18:20)
[2021-03-07] MEDS: INSULIN GLARGINE UD 100 UNITS/ML SYR SUBCUT SCH ×2 (10:00→21:31)
[2021-03-07] MEDS: CEFTAZIDIME PENTAHYDRATE 2 G in DEXT 5% WATER 100 ML IV SCH ×2 (13:05→18:20)
[2021-03-07] MEDS: SENNOSIDES 8.6MG TABLET PO SCH (21:00)
[2021-03-08] VITALS (102 sets, daily range): BP systolic 65–165; BP diastolic 31–110
[2021-03-08] MEDS: BLOOD SUGAR DIAGNOSTIC STRIP TEST SCH ×4 (00:01→17:33)
[2021-03-08] MEDS: POLYVINYL ALCOHOL OPHTH DROPS 15ML BOTHEYE SCH ×4 (00:11→17:55)
[2021-03-08] MEDS: CEFTAZIDIME PENTAHYDRATE 2 G in DEXT 5% WATER 100 ML IV SCH ×4 (00:11→17:54)
[2021-03-08] MEDS: IPRATROPIUM BROMIDE (0.02%) 0.5MG/2.5ML NEB HHN SCH ×4 (02:04→20:10)
[2021-03-08] MEDS: LINEZOLID 600 MG PREMIX 300 ML IV SCH ×2 (02:43→14:57)
[2021-03-08] MEDS: INSULIN LISPRO 100 UNITS/ML SUBCUT SCH ×8 (05:10→17:57)
[2021-03-08] MEDS: SUCRALFATE 1 G/10 ML UDC PO SCH ×5 (05:10→23:21)
[2021-03-08] MEDS: PHENYLEPHRINE 100 MG in DEXT 5% WATER 240 ML IV PRN ×4 (05:25→22:08)
[2021-03-08 06:45] LABS: BASOPHILS % 0.6 % (0.0-2.0); HEMATOCRIT. 26.6 % (42.0-52.0); HEMOGLOBIN. 8.3 g/dL (14.0-18.0); LYMPHOCYTES % 11.7 % (20.0-50.0); MEAN CORPUSCULAR HEMOGLOBIN 29.9 pg (28.0-32.0); MEAN CORPUSCULAR VOLUME 95.5 fL (80.0-94.0); MEAN PLATELET VOLUME 10.2 fl (7.4-10.4); MONOCYTES % 5.1 % (2.0-8.0); NEUTROPHILS % 79.6 % (40.0-76.0); PLATELET 198 x1000/uL (130-400); RED BLOOD CELL COUNT 2.78 mill/uL (4.7-6.1)
[2021-03-08 06:48] LABS: CHLORIDE 113 mEq/L (98-107)
[2021-03-08] MEDS: PANTOPRAZOLE SODIUM 40 MG/VIAL IV SCH ×2 (07:58→17:54)
[2021-03-08] MEDS: BISACODYL 5MG TABLET PO SCH (08:13)
[2021-03-08] MEDS: MIDODRINE HCL 5MG TABLET PO SCH ×3 (08:14→16:18)
[2021-03-08] MEDS: INSULIN GLARGINE UD 100 UNITS/ML SYR SUBCUT SCH ×2 (09:28→21:18)
[2021-03-08 10:21] LABS: BG BASE EXCESS -4.2 mmol/L (-2.0-2.0); BG CARBOXYHEMOGLOBIN 0.3 % (0.5-1.5); BG DEOXYHEMOGLOBIN 5.3 % (0.0-5.0); BG FRACTION INSPIRED OXYGEN 30; BG HCO3 ACT 20.2 mmol/L (22.0-26.0); BG OXYGEN SATURATION 94.7 % (92.0-98.5); BG OXYHEMOGLOBIN 94.4 % (94.0-97.0); BG PCO2 33.6 mmHg (35.0-45.0); BG PH 7.396 (7.350-7.450); BG PO2 76.1 mmHg (75.0-100.0); BG SAMPLE SITE RIGHT RADIAL; BG TOTAL HEMOGLOBIN 8.6 g/dL (12.0-18.0); BG VENT MODE VENT - AC
[2021-03-08] MEDS: DEXTROSE 5% WATER 1,000 ML IV SCH (19:00)
[2021-03-08] MEDS: SENNOSIDES 8.6MG TABLET PO SCH (21:00)
[2021-03-09] VITALS (95 sets, daily range): BP systolic 51–148; BP diastolic 26–124
[2021-03-09] MEDS: BLOOD SUGAR DIAGNOSTIC STRIP TEST SCH ×5 (00:10→21:20)
[2021-03-09] MEDS: CEFTAZIDIME PENTAHYDRATE 2 G in DEXT 5% WATER 100 ML IV SCH ×4 (00:10→21:01)
[2021-03-09] MEDS: POLYVINYL ALCOHOL OPHTH DROPS 15ML BOTHEYE SCH ×4 (00:10→17:19)
[2021-03-09] MEDS: IPRATROPIUM BROMIDE (0.02%) 0.5MG/2.5ML NEB HHN SCH ×4 (02:02→19:35)
[2021-03-09] MEDS: LINEZOLID 600 MG PREMIX 300 ML IV SCH ×2 (02:38→15:13)
[2021-03-09] MEDS: PHENYLEPHRINE 100 MG in DEXT 5% WATER 240 ML IV PRN ×6 (02:38→21:03)
[2021-03-09 04:57] LABS: BASOPHILS % 0.4 % (0.0-2.0); EOSINOPHILS % 5.4 % (0.0-5.0); HEMATOCRIT. 26.7 % (42.0-52.0); HEMOGLOBIN. 8.3 g/dL (14.0-18.0); LYMPHOCYTES % 11.7 % (20.0-50.0); MEAN CORPUSCULAR HEMOGLOBIN 30.2 pg (28.0-32.0); MEAN PLATELET VOLUME 10.1 fl (7.4-10.4); MONOCYTES % 4.6 % (2.0-8.0); NEUTROPHILS % 77.9 % (40.0-76.0); PLATELET 198 x1000/uL (130-400); RED BLOOD CELL COUNT 2.75 mill/uL (4.7-6.1); RED CELL DISTRIBUTION WIDTH 16.1 % (11.6-14.6)
[2021-03-09 05:02] LABS: CHLORIDE 111 mEq/L (98-107)
[2021-03-09] MEDS: SUCRALFATE 1 G/10 ML UDC PO SCH ×3 (05:45→17:19)
[2021-03-09] MEDS: INSULIN LISPRO 100 UNITS/ML SUBCUT SCH ×10 (05:46→21:20)
[2021-03-09] MEDS: DEXTROSE 5% WATER 1,000 ML IV SCH (06:46)
[2021-03-09] MEDS: PANTOPRAZOLE SODIUM 40 MG/VIAL IV SCH ×2 (07:43→17:19)
[2021-03-09] MEDS: MIDODRINE HCL 5MG TABLET PO SCH ×3 (08:52→16:23)
[2021-03-09] MEDS: INSULIN GLARGINE UD 100 UNITS/ML SYR SUBCUT SCH ×2 (09:20→21:17)
[2021-03-09 09:54] LABS: BG BASE EXCESS -5.8 mmol/L (-2.0-2.0); BG CARBOXYHEMOGLOBIN 0.8 % (0.5-1.5); BG DEOXYHEMOGLOBIN 2.2 % (0.0-5.0); BG FRACTION INSPIRED OXYGEN 30; BG HCO3 ACT 17.3 mmol/L (22.0-26.0); BG METHEMOGLOBIN 0.5 % (0.0-1.5); BG OXYGEN SATURATION 97.8 % (92.0-98.5); BG OXYHEMOGLOBIN 96.5 % (94.0-97.0); BG PCO2 25.7 mmHg (35.0-45.0); BG PH 7.447 (7.350-7.450); BG SAMPLE SITE RIGHT RADIAL; BG VENT MODE VENT - AC
[2021-03-09] MEDS ORDERED: VASOPRESSIN 20 UNIT in SODIUM CHLORIDE 0.9% 99 ML IV PRN (11:00)
[2021-03-09] MEDS: NOREPINEPHRINE 32 MG in DEXT 5% WATER 218 ML IV PRN ×4 (13:07→21:02)
[2021-03-09] MEDS ORDERED: DIGOXIN 500MCG/2ML AMP IV NR (14:30)
[2021-03-09] MEDS ORDERED: LORAZEPAM 2MG/ML CPJ IV PRN (15:15)
[2021-03-09] MEDS: DIPHENHYDRAMINE 50MG/ML VIAL IV PRN (15:44)
[2021-03-09] MEDS ORDERED: MORPHINE SULFATE 2 MG/ML CPJ (NOT FOR IM USE) IV PRN (16:00)
[2021-03-09] MEDS: SENNOSIDES 8.6MG TABLET PO SCH (21:00)
== END 2021-03-09 23:50 | DRG 710 ==
LOC: ER 00:22 → MICUSO 02:41 → ENRESERV 07:43 → MICUSO 02-19 14:12 → 5EST 02-27 22:35 → CVICU 03-04 15:32
PROVIDERS: ADMIT Internal Medicine; ATTEND Internal Medicine
PROC: 05H533Z Insertion of Infusion Device into Right Subclavian Vein, Percutaneous Approach (ICD-10-PCS; 2021-02-16)
PROC: B546ZZA Ultrasonography of Right Subclavian Vein, Guidance (ICD-10-PCS; 2021-02-16)
PROC: 5A1955Z Respiratory Ventilation, Greater than 96 Consecutive Hours (ICD-10-PCS; 2021-02-16)
PROC: 5A12012 Performance of Cardiac Output, Single, Manual (ICD-10-PCS; 2021-02-19)
PROC: 0B21XFZ Change Tracheostomy Device in Trachea, External Approach (ICD-10-PCS; 2021-02-19)
PROC: 0W9B30Z Drainage of Left Pleural Cavity with Drainage Device, Percutaneous Approach (ICD-10-PCS; 2021-02-20)
PROC: 4A10X4Z Monitoring of Central Nervous Electrical Activity, External Approach (ICD-10-PCS; 2021-02-27)
PROC: 0DH60UZ Insertion of Feeding Device into Stomach, Open Approach (ICD-10-PCS; principal; 2021-03-03)
PROC: 05HY33Z Insertion of Infusion Device into Upper Vein, Percutaneous Approach (ICD-10-PCS; 2021-03-04)
PROC: B54NZZA Ultrasonography of Left Upper Extremity Veins, Guidance (ICD-10-PCS; 2021-03-04)
DX: A41.50 Gram-negative sepsis, unspecified (principal); J96.22 Acute and chronic respiratory failure with hypercapnia; N17.0 Acute kidney failure with tubular necrosis; J69.0 Pneumonitis due to inhalation of food and vomit; J15.1 Pneumonia due to Pseudomonas; R65.21 Severe sepsis with septic shock; E44.0 Moderate protein-calorie malnutrition; G93.1 Anoxic brain damage, not elsewhere classified; G93.41 Metabolic encephalopathy; Z93.0 Tracheostomy status; E87.2 Acidosis; E11.51 Type 2 diabetes mellitus with diabetic peripheral angiopathy without gangrene; D64.9 Anemia, unspecified; E87.5 Hyperkalemia; E66.2 Morbid (severe) obesity with alveolar hypoventilation; L97.229 Non-pressure chronic ulcer of left calf with unspecified severity; I46.9 Cardiac arrest, cause unspecified; Z66 Do not resuscitate; I87.8 Other specified disorders of veins; S90.425A Blister (nonthermal), left lesser toe(s), initial encounter; X58.XXXA Exposure to other specified factors, initial encounter; I87.2 Venous insufficiency (chronic) (peripheral); J93.9 Pneumothorax, unspecified; Z20.822 Contact with and (suspected) exposure to COVID-19; E87.6 Hypokalemia; E86.0 Dehydration; E87.0 Hyperosmolality and hypernatremia; K92.2 Gastrointestinal hemorrhage, unspecified; I12.9 Hypertensive chronic kidney disease with stage 1 through stage 4 chronic kidney disease, or unspecified chronic kidney disease; E11.22 Type 2 diabetes mellitus with diabetic chronic kidney disease; N18.9 Chronic kidney disease, unspecified; Z68.45 Body mass index [BMI] 70 or greater, adult; Y93.89 Activity, other specified; Y92.89 Other specified places as the place of occurrence of the external cause; Y99.8 Other external cause status; Z93.1 Gastrostomy status
CPT/HCPCS: 36415; 36600; 71045; 76937; 80048; 80053; 81003; 82040; 82140; 82375; 82607; 82728; 82805; 82962; 83540; 83550; 83605; 83880; 84134; 84145; 84478; 84484; 85014; 85018; 85025; 87070; 87077; 87186; 87426; 90686; 93005; 93923; 93970; 94003; 94640; 94644; 95816; 99291; A6261; C1725; C1769; C1893; C9113; J0692; J0713; J1100; J1160; J1200; J1650; J1815; J1940; J1956; J2020; J2060; J2185; J2250; J2270; J2370; J2543; J2704; J2920; J2930; J3010; J3370; J3480; J3490; J7030; J7050; J7060; J7070; J7131; J7608; U0003; A4315